=== PATIENT | female | born 1995 | race Caucasian/White ===

== ENCOUNTER 2017-02-15 14:07 | Emergency (ER) | payer OTHER ==
[2017-02-15 15:23] LABS: Mean Platelet Volume 8.1 fL (7.4-10.4); Red Blood Cell (RBC) Count 4.24 mill/uL (4.20-5.40); White Blood Cell (WBC) Count 20.4 thou/uL (4.8-10.8)
[2017-02-15 15:24] LABS: Bilirubin Negative (Negative); Blood, Urine Small (Negative); Glucose, Urine (Dipstick) Negative (Negative); Ketone, Urine 40 mg/dL (Negative); Nitrite Positive (Negative); Protein, Urine (Dipstick) 30 mg/dL (Neg-Trace); Urobilinogen 0.2 mg/dL (0.2-1.0)
[2017-02-15 15:25] LABS: Bacteria/HPF 4+ HPF (None Seen); Hyaline Casts/LPF 0-3 HYALINE CAST LPF (0-3 Hyaline); RBC/HPF 0-3 HPF (0-3); Squamous Epithelial 0-3 HPF (0-3)
[2017-02-15 15:36] LABS: ALT (SGPT) 8 U/L (8-55); AST (SGOT) 14 U/L (5-34); Alkaline Phosphatase 48 U/L (40-150); Anion Gap 14 mmol/L (10-20); BUN (Urea Nitrogen) 12 mg/dL (7.0-18.7); Bilirubin, Total 0.7 mg/dL (0.2-1.2); Calc. Creatinine Clearance 0 mL/min (70-130); Calcium 8.8 mg/dL (7.8-10.44); Carbon Dioxide 22 mmol/L (22-29); Chloride 105 mmol/L (98-107); Estimated GFR-MDRD Greater than 90; Globulin 3.6 g/dL (2.4-3.5); Lipase 9 U/L (8-78); Protein, Total 7.3 g/dL (6.0-8.3)
[2017-02-15 15:44] LABS: Band 9 % (5-11); Neutrophil 87 % (42-75)
[2017-02-15] MEDS ORDERED: Iopamidol 370 76% 50 ML VIAL FS ONE (16:30)
[2017-02-15] MEDS ORDERED: ISOVUE-370 76%-LOCM 1 ML ONE (16:30)
[2017-02-15] MEDS ORDERED: Acetaminophen 500 MG TAB ONE ×2 (17:44)
--- NOTE | 2017-02-15 17:49 | CT ---
ABDOMEN AND PELVIS CT WITH CONTRAST: Date: 02/15/17 INDICATION: Right lower quadrant pain. FINDINGS: No significant abnormalities in the lung bases. There is a normal caliber appendix of the right abdomen. There is focal hypoenhancement of the later al aspect of the right kidney, as well as involving the lower pole. There is also thickening of the urothelium of the right urinary collection system. This is compatible with an ascending urinary trac t infection and associated pyelonephritis. There is a right side extrarenal pelvis. Moderate retaine d fecal material of the colon. There is an intrauterine device. Heterogeneity uterus and adnexa pres ent which may be physiologic, given patient's age. There is mild, nonspecific free pelvic fluid. No free air. Osseous structures reveal no acute findings. IMPRESSION: 1. Ascending right side urinary tract infection with associated pyelonephritis. 2. Normal caliber appendix. 3. Presumed physiologic changes of the pelvis as above. Correlate clinically. POS: REGINA
== END 2017-02-15 17:42 | disposition home or self-care (01) ==
LOC: ERS 14:07
DX: N12 Tubulo-interstitial nephritis, not specified as acute or chronic (principal)
CPT/HCPCS: 36415; 74177; 80053; 81003; 81015; 81025; 83690; 85025; 87077; 87086; 87186; 96361; 96374; J0696